=== PATIENT | female | born 1975 | race Caucasian/White ===

== ENCOUNTER 2016-12-12 22:23 | Emergency (ER) | payer MEDICAID ==
[~2016-12-12] VITALS: Ht 167.6 cm; Wt 113.4 kg
[~2016-12-12 22:23] MED LIST: ASPI-605 PO; INSULIN APIDRA; INSULIN REGULAR PUMP; LISI10TA5 PO; NORG1TAB71 PO
[2016-12-12] MEDS ORDERED: HYDROCODONE/APAP 10-325 MG TABLET PO ONE (23:30)
[2016-12-12] MEDS ORDERED: ONDANSETRON ODT 4 MG TAB.RAPDIS SL ONE (23:30)
[2016-12-12] MEDS ORDERED: ONDANSETRON ODT 4 MG TAB.RAPDIS ONE (23:43)
[2016-12-12] MEDS ORDERED: HYDROCODONE/APAP 10-325 MG TABLET ONE (23:44)
--- NOTE | 2016-12-12 23:44 | NUR ---
Patient discharged to home in stable conditon. Written and verbal after care instructions given. Patient verbalizes understanding of instructions.
[2016-12-12 23:45] VITALS: BP 138/80
== END 2016-12-12 23:44 | disposition home or self-care (01) ==
LOC: ER 22:23
DX: B34.9 Viral infection, unspecified (principal); E10.9 Type 1 diabetes mellitus without complications; I10 Essential (primary) hypertension; Z88.2 Allergy status to sulfonamides; H92.03 Otalgia, bilateral; Z88.1 Allergy status to other antibiotic agents; Z79.82 Long term (current) use of aspirin; Z79.4 Long term (current) use of insulin
CPT/HCPCS: A4663; Q0162

== ENCOUNTER 2016-12-14 20:13 | Emergency (ER) | payer MEDICAID ==
[~2016-12-14] VITALS: Ht 167.6 cm; Wt 113.4 kg
--- NOTE | 2016-12-14 21:15 | NUR ---
Patient discharged to home in stable conditon. Written and verbal after care instructions given. Patient verbalizes understanding of instructions. WALKED OUT OF ER WITH STEADY GAIT WITH NO DISTRESS NOTED
== END 2016-12-14 21:16 | disposition home or self-care (01) ==
LOC: ER 20:16
DX: H66.91 Otitis media, unspecified, right ear (principal); E10.9 Type 1 diabetes mellitus without complications; I10 Essential (primary) hypertension; J02.9 Acute pharyngitis, unspecified; R09.81 Nasal congestion; Z79.4 Long term (current) use of insulin; Z79.82 Long term (current) use of aspirin; Z88.2 Allergy status to sulfonamides; Z88.1 Allergy status to other antibiotic agents
CPT/HCPCS: A4663

== ENCOUNTER 2017-05-12 11:17 | Emergency (ER) | payer MEDICAID ==
[~2017-05-12] VITALS: Ht 167.6 cm; Wt 117.9 kg
--- NOTE | 2017-05-12 11:49 | NUR ---
Dr Armenta at the bedside for eval and exam.
--- NOTE | 2017-05-12 11:57 | NUR ---
Patient discharged to home in stable conditon. Written and verbal after care instructions given. Patient verbalizes understanding of instructions.
[2017-05-12 11:58] VITALS: BP 152/103
== END 2017-05-12 11:58 | disposition home or self-care (01) ==
LOC: ER 11:17
DX: L08.89 Other specified local infections of the skin and subcutaneous tissue (principal); E10.9 Type 1 diabetes mellitus without complications; Z79.4 Long term (current) use of insulin; Z88.1 Allergy status to other antibiotic agents; Z88.2 Allergy status to sulfonamides
CPT/HCPCS: 99283; A4663

== ENCOUNTER 2017-06-04 08:30 | Emergency (ER) | payer MEDICAID ==
[~2017-06-04] VITALS: Ht 167.6 cm; Wt 117.9 kg
[~2017-06-04 08:30] MED LIST changes: -NORG1TAB71 PO
--- NOTE | 2017-06-04 08:54 | NUR ---
Pt c/o lower quadrant ABD pain, currently 8-9/10, and dysuria. Pt denies CP, SOB, dizziness, n/v, no other complaints, no distress noted. Urine sample taken to lab.
[2017-06-04 09:13] LABS: *BLOOD, URINE 1+ (NEGATIVE); *KETONES,URINE TRACE (NEGATIVE); *PROTEIN,URINE 2+ (NEGATIVE); LEUKOCYTE ESTERASE ,URINE NEGATIVE (NEGATIVE); NITRITE, URINE POSITIVE (NEGATIVE); UGLUCOSE TRACE (NEGATIVE)
[2017-06-04] MEDS ORDERED: LEVOFLOXACIN 750 MG TABLET PO ONE (09:15)
[2017-06-04 09:18] LABS: *URINE HCG, QUAL NEG (NEGATIVE)
[2017-06-04 09:28] LABS: *BILIRUBIN,URIN 1+ (NEGATIVE)
[2017-06-04 09:29] LABS: *CLARITY,URINE SLIGHTLY CLOUDY (CLEAR)
[2017-06-04 09:30] LABS: *COLOR,URINE DARK ORANGE (YELLOW)
[2017-06-04] MEDS ORDERED: LEVOFLOXACIN 750 MG TABLET ONE (09:30)
[2017-06-04 09:34] LABS: BACTERIA,URINE MODERATE /HPF (NONE SEEN); SQUAMOUS EPITHELIAL CELL,UR FEW /HPF (NONE SEEN)
[2017-06-04 09:35] LABS: MUCUS,URINE FEW /LPF (0-FEW)
--- NOTE | 2017-06-04 09:40 | NUR ---
Gave pt RX and d/c instructions, verbalized understanding.
== END 2017-06-04 09:42 | disposition home or self-care (01) ==
LOC: ER 08:30
DX: N39.0 Urinary tract infection, site not specified (principal); E11.9 Type 2 diabetes mellitus without complications; Z79.4 Long term (current) use of insulin; Z88.1 Allergy status to other antibiotic agents; Z88.2 Allergy status to sulfonamides
CPT/HCPCS: 84703; 87077; 87086; A4663

== ENCOUNTER 2017-10-08 11:01 | Emergency (ER) | payer MEDICAID ==
[~2017-10-08] VITALS: Ht 167.6 cm; Wt 117.9 kg
--- NOTE | 2017-10-08 12:09 | NUR ---
PATIENT WAS SEEN BY MD FOR CHEST/SHOULDER DISCOMFORT. 12 LEAD EKG WA DONE GABRIELLE. TROPONIN WAS WNL. PATIENT TO F/U WITH HER DOCTOR. DC AND FOLLW UP INSTRUCTIONS GIVEN AND EXPLAINED TO PATIENT WHO STATES SHE UNDERSTANDS ALL ISNRTUCITONS
== END 2017-10-08 12:14 | disposition home or self-care (01) ==
LOC: ER 11:01
DX: R07.89 Other chest pain (principal); E10.9 Type 1 diabetes mellitus without complications; Z79.4 Long term (current) use of insulin; Z79.82 Long term (current) use of aspirin; Z88.2 Allergy status to sulfonamides
CPT/HCPCS: 36415; 70030-TC; 93005; A4663

== ENCOUNTER 2018-04-26 08:08 | Emergency (ER) | payer MEDICAID ==
[~2018-04-26] VITALS: Ht 167.6 cm; Wt 117.9 kg
--- NOTE | 2018-04-26 08:30 | NUR ---
mse completed, pt d/c'd home, aci/rx x1 given
[2018-04-26 08:44] VITALS: BP 133/78
== END 2018-04-26 08:30 | disposition home or self-care (01) ==
LOC: ER 08:08
DX: J20.9 Acute bronchitis, unspecified (principal); E10.8 Type 1 diabetes mellitus with unspecified complications; Z88.2 Allergy status to sulfonamides; Z88.8 Allergy status to other drugs, medicaments and biological substances; Z79.4 Long term (current) use of insulin; Z79.82 Long term (current) use of aspirin
CPT/HCPCS: 99281; A4663

== ENCOUNTER 2019-01-07 14:35 | Emergency (ER) | payer MEDICAID ==
[~2019-01-07] VITALS: Ht 167.6 cm; Wt 117.9 kg
[2019-01-07 15:05] LABS: *URINE HCG, QUAL NEGATIVE (NEGATIVE)
[2019-01-07 15:08] LABS: *CLARITY,URINE CLOUDY (CLEAR); *COLOR,URINE ORANGE (YELLOW)
[2019-01-07 15:09] LABS: *BLOOD, URINE 3+ (NEGATIVE); UGLUCOSE NEGATIVE (NEGATIVE)
[2019-01-07 15:10] LABS: *BILIRUBIN,URIN NEGATIVE (NEGATIVE); *KETONES,URINE TRACE (NEGATIVE); LEUKOCYTE ESTERASE ,URINE 1+ (NEGATIVE); NITRITE, URINE NEGATIVE (NEGATIVE)
[2019-01-07 15:12] LABS: BACTERIA,URINE MODERATE /HPF (NONE SEEN); MUCUS,URINE MODERATE /LPF (0-FEW); RBC,URINE 80-100 /HPF (0-3); SQUAMOUS EPITHELIAL CELL,UR MODERATE /HPF (NONE SEEN); WBC,URINE 50-80 /HPF (0-3)
[2019-01-07] MEDS ORDERED: PHENAZOPYRIDINE HCL 100 MG TABLET PO ONE (15:30)
[2019-01-07] MEDS ORDERED: CEphaleXIN 500 MG CAPSULE PO ONE (15:30)
[2019-01-07] MEDS ORDERED: PHENAZOPYRIDINE HCL 100 MG TABLET ONE (15:34)
[2019-01-07] MEDS ORDERED: CEphaleXIN 500 MG CAPSULE ONE (15:34)
== END 2019-01-07 15:40 | disposition home or self-care (01) ==
LOC: ER 14:35
DX: N39.0 Urinary tract infection, site not specified (principal); E11.9 Type 2 diabetes mellitus without complications; Z88.2 Allergy status to sulfonamides; Z88.8 Allergy status to other drugs, medicaments and biological substances; Z79.82 Long term (current) use of aspirin; Z79.4 Long term (current) use of insulin; Z79.899 Other long term (current) drug therapy
CPT/HCPCS: 84703; A4663

== ENCOUNTER 2020-06-03 13:04 | Emergency (ER) | payer MEDICAID ==
[~2020-06-03] VITALS: Ht 167.6 cm; Wt 117.9 kg
[2020-06-03 13:47] LABS: *BILIRUBIN,URIN NEGATIVE (NEGATIVE); *BLOOD, URINE NEGATIVE (NEGATIVE); *CLARITY,URINE CLEAR (CLEAR); *COLOR,URINE YELLOW (YELLOW); *KETONES,URINE NEGATIVE (NEGATIVE); *UROBILINOGEN,URINE 0.2 E.U./dl (NORMAL); LEUKOCYTE ESTERASE ,URINE NEGATIVE (NEGATIVE); NITRITE, URINE NEGATIVE (NEGATIVE); PH,URINE 5.5 (5.0-8.0); UGLUCOSE NEGATIVE (NEGATIVE)
[2020-06-03 13:56] LABS: *URINE HCG, QUAL NEG (NEGATIVE)
[2020-06-03] MEDS ORDERED: CEFTRIAXONE 2 G in IV DEXTROSE 5% 100 ML IV ONE (14:00)
[2020-06-03] MEDS ORDERED: CEFTRIAXONE 1 G VIAL ONE (14:03)
--- NOTE | 2020-06-03 14:18 | NUR ---
Patient is resting comfortably on gurney while using her personal electronic device. PATIENT IS PAIN FREE AT THIS TIME.
--- NOTE | 2020-06-03 15:00 | NUR ---
IV removed. Catheter intact and site benign. Pressure and 4x4 gauze applied to site. No bleeding noted. Patient discharged to home in stable condition with brisk steady gait. Written and verbal after care instructions was given to patient. Patient verbalized understanding and compliance of instructions. Stressed follow up with primary doctor was reiterated to patient. Patient was also told to return to ER for worsening of signs and symptoms.
== END 2020-06-03 15:04 | disposition home or self-care (01) ==
LOC: ER 13:04
DX: N10 Acute pyelonephritis (principal); E11.9 Type 2 diabetes mellitus without complications; Z96.41 Presence of insulin pump (external) (internal); Z88.2 Allergy status to sulfonamides; E78.5 Hyperlipidemia, unspecified; Z87.440 Personal history of urinary (tract) infections; I10 Essential (primary) hypertension; Z88.8 Allergy status to other drugs, medicaments and biological substances
CPT/HCPCS: 81001; 82962; 84703; 87086; 96365; 99284; J0696; A4663; J3490

== ENCOUNTER 2021-01-07 20:48 | Emergency (ER) | payer MEDICAID ==
[~2021-01-07] VITALS: Ht 167.6 cm; Wt 117.9 kg
[~2021-01-07 20:48] MED LIST changes: +LISI10TA29 PO; -LISI10TA5 PO
--- NOTE | 2021-01-07 20:55 | NUR ---
Natividad perez in [facility] - 01/07/21 at 2104 by MATTHIAS Patient provided urine sample, sent to lab.
--- NOTE | 2021-01-07 21:01 | NUR ---
Dr. Blanco at bedside for MSE.
[2021-01-07 21:32] LABS: BASOPHILS # (AUTO) 0.1 K/uL (0.0-8.0); BASOPHILS % (AUTO) 0.6 % (0.0-2.0); EOSINOPHILS # (AUTO) 0.2 K/uL (0.0-0.7); HEMATOCRIT 37.7 % (31.2-41.9); HEMOGLOBIN 12.5 g/dL (10.9-14.3); LYMPHOCYTES # (AUTO) 2.7 K/uL (20.0-40.0); LYMPHOCYTES % (AUTO) 21.9 % (20.5-51.5); MEAN CORPUSCULAR HEMOGLOBIN 27.8 uug (24.7-32.8); MEAN CORPUSCULAR HGB CONC 33 g/dL (32.3-35.6); MEAN CORPUSCULAR VOLUME 83.8 fL (75.5-95.3); MONOCYTES # (AUTO) 0.6 K/uL (2.0-10.0); MONOCYTES % (AUTO) 4.6 % (0.0-11.0); NEUTROPHILS # (AUTO) 8.9 K/uL (1.8-8.9); NEUTROPHILS % (AUTO) 70.9 % (38.5-71.5); PLATELET COUNT (AUTO) 445 K/uL (179-408); WHITE BLOOD COUNT (AUTO) 12.5 K/uL (3.8-11.8)
[2021-01-07 21:33] LABS: CARBON DIOXIDE 27 mmol/L (21-32); CHLORIDE 103 mmol/L (98-107); GLUCOSE 187 mg/dL (74-106); POTASSIUM 3.7 mmol/L (3.5-5.1); UREA NITROGEN, BLOOD 14 mg/dL (7-18)
[2021-01-07 21:39] LABS: ALANINE AMINOTRANSFERASE 19 U/L (14-59); ALKALINE PHOSPHATASE < 10 U/L (50-136); ASPARTATE AMINOTRANSFERASE 12 U/L (15-37); BILIRUBIN,DIRECT 0.1 mg/dL (0.0-0.2); BILIRUBIN,TOTAL 0.3 mg/dL (0.2-1.0); LIPASE 49 U/L (73-393)
[2021-01-07] MEDS ORDERED: IV NORMAL SALINE 250 ML IV ONE (21:53)
[2021-01-07] MEDS ORDERED: SWABABLE VALVE TRANSFER SET EA MC ONE (21:53)
[2021-01-07] MEDS ORDERED: IOHEXOL 300MG/ML 100 ML INFUS..BTL ONE (21:53)
--- NOTE | 2021-01-07 22:02 | NUR ---
Pt out of ER for CT.
--- NOTE | 2021-01-07 22:20 | NUR ---
Pt back to ER from CT.
--- NOTE | 2021-01-07 22:25 | NUR ---
Ultrasound at bedside.
[2021-01-07] MEDS ORDERED: HYDR-4209 PO (23:05)
[2021-01-07] MEDS ORDERED: ONDA4TAB5 PO (23:05)
[2021-01-07] MEDS ORDERED: KETOROLAC TROMETHAMINE 30 MG INJ ONE (23:27)
--- NOTE | 2021-01-07 23:27 | NUR ---
Patient discharged to home in stable condition. Written and verbal after care instructions given. Patient verbalizes understanding of instructions. Stressed follow up or return to ER for worsening s/s. Patient out of ER with steady gait, VSS, no acute signs of distress, all belongings taken, IV site discontinued, provided with a copy of lab and results of CT and ultrasound and CD.
[2021-01-07 23:29] VITALS: BP 141/73
[2021-01-07] MEDS ORDERED: KETOROLAC TROMETHAMINE 30 MG INJ IVP ONE (23:30)
[2021-01-08] MEDS ORDERED: NITR100C11 PO (19:30)
[2021-01-08] MEDS ORDERED: NAPR-1164 PO (19:31)
[2021-01-08] MEDS ORDERED: PHEN-704 PO (19:31)
[2021-01-08] MEDS ORDERED: CEPH500C2 PO (19:36)
== END 2021-01-07 23:30 | disposition home or self-care (01) ==
LOC: ER 20:48
DX: K80.20 Calculus of gallbladder without cholecystitis without obstruction (principal); Z88.2 Allergy status to sulfonamides; E10.9 Type 1 diabetes mellitus without complications; E66.9 Obesity, unspecified; Z68.41 Body mass index [BMI] 40.0-44.9, adult; R10.33 Periumbilical pain
CPT/HCPCS: 36415; 74177; 76705; 80048; 80076; 83690; 85025; 85730; 96374; 99285; J1885; Q9967; A4663; J7050

== ENCOUNTER 2021-01-08 19:02 | Emergency (ER) | payer MEDICAID ==
[~2021-01-08] VITALS: Ht 167.6 cm; Wt 117.9 kg
[~2021-01-08 19:02] MED LIST changes: +HYDR-4209 PO; +ONDA4TAB5 PO
--- NOTE | 2021-01-08 19:10 | NUR ---
Provided urine cup to patient to collect patient. Patient A/Ox4, patient came for c/o pain when voiding. Patient describes feeling pressure, and urge incontinence not being able to urinate. Denies any flank pain, no nausea or vomiting. Awaiting physician evaluation.
[2021-01-08 19:18] LABS: *BILIRUBIN,URIN NEGATIVE (NEGATIVE); *BLOOD, URINE NEGATIVE (NEGATIVE); *CLARITY,URINE SLIGHTLY CLOUDY (CLEAR); *COLOR,URINE YELLOW (YELLOW); *KETONES,URINE NEGATIVE (NEGATIVE); *UROBILINOGEN,URINE 0.2 E.U./dl (NORMAL); LEUKOCYTE ESTERASE ,URINE NEGATIVE (NEGATIVE); NITRITE, URINE NEGATIVE (NEGATIVE); PH,URINE 5.5 (5.0-8.0); UGLUCOSE 1+ (NEGATIVE)
--- NOTE | 2021-01-08 19:18 | NUR ---
Urine specimen dropped off at lab for processing.
[2021-01-08 19:20] LABS: *URINE HCG, QUAL NEGATIVE (NEGATIVE)
--- NOTE | 2021-01-08 19:22 | NUR ---
ER physician at bedside for MSE.
[2021-01-08 19:25] LABS: BACTERIA,URINE MODERATE /HPF (NONE SEEN); RBC,URINE 0-3 /HPF (0-3); SQUAMOUS EPITHELIAL CELL,UR FEW /HPF (NONE SEEN); WBC,URINE 0-3 /HPF (0-3)
[2021-01-08] MEDS ORDERED: NITR100C11 PO (19:30)
[2021-01-08] MEDS ORDERED: NAPR-1164 PO (19:31)
[2021-01-08] MEDS ORDERED: PHEN-704 PO (19:31)
[2021-01-08 19:33] VITALS: BP 140/90
--- NOTE | 2021-01-08 19:33 | NUR ---
Patient discharged to home in stable condition. Written and verbal after care instructions given. Patient verbalizes understanding of instructions. Stressed follow up or return to ER for worsening s/s. Patient ambulated with steady gait. A/Ox4. All belongings returned to patient prior to departure.
[2021-01-08] MEDS ORDERED: CEPH500C2 PO (19:36)
== END 2021-01-08 19:37 | disposition home or self-care (01) ==
LOC: ER 19:02
DX: R30.0 Dysuria (principal); R10.9 Unspecified abdominal pain; K76.0 Fatty (change of) liver, not elsewhere classified; K80.20 Calculus of gallbladder without cholecystitis without obstruction; E11.9 Type 2 diabetes mellitus without complications; Z79.4 Long term (current) use of insulin; Z87.440 Personal history of urinary (tract) infections
CPT/HCPCS: 84703; 87086; A4663

== ENCOUNTER 2021-04-28 02:17 | Emergency (ER) | payer MEDICAID ==
[~2021-04-28] VITALS: Ht 167.6 cm; Wt 113.4 kg
[~2021-04-28 02:17] MED LIST changes: +CEPH500C2 PO; +NAPR-1164 PO; +PHEN-704 PO
--- NOTE | 2021-04-28 02:26 | NUR ---
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 A/O X4, NO SOB OR LABORED BREATHING. DENIES CP/PRESSURE. DR. ALLRED AT BEDSIDE MSE IN PROGRESS.
[2021-04-28] MEDS ORDERED: KETOROLAC TROMETHAMINE 15 MG INJ IVP ONE (02:30)
[2021-04-28] MEDS ORDERED: HYDROMORPHONE 1 MG/1 ML DISP.SYRIN IV ONE (02:30)
[2021-04-28] MEDS ORDERED: ONDANSETRON 4 MG/2 ML VIAL IV ONE (02:30)
--- NOTE | 2021-04-28 02:49 | NUR ---
LAB AT BEDSIDE.
[2021-04-28 03:11] LABS: CREATININE 0.9 mg/dL (0.6-1.3); POTASSIUM 3.7 mmol/L (3.5-5.1)
--- NOTE | 2021-04-28 03:12 | NUR ---
ULTRASOUND ([facility]) AT BEDSIDE.
[2021-04-28 03:13] LABS: HEMATOCRIT 37.5 % (31.2-41.9); MEAN CORPUSCULAR VOLUME 83.2 fL (75.5-95.3); PLATELET COUNT (AUTO) 306 K/uL (179-408)
[2021-04-28] MEDS ORDERED: HYDROCODONE/APAP 5-325MG TABLET PO ONE (03:15)
[2021-04-28] MEDS ORDERED: ONDANSETRON ODT 4 MG TAB.RAPDIS SL ONE (03:15)
[2021-04-28] MEDS ORDERED: IBUPROFEN 400 MG TABLET PO ONE (03:15)
[2021-04-28 03:16] LABS: BILIRUBIN,DIRECT 0.1 mg/dL (0.0-0.2); BILIRUBIN,TOTAL 0.3 mg/dL (0.2-1.0); TOTAL PROTEIN, SERUM 7.4 g/dL (6.4-8.2)
[2021-04-28] MEDS ORDERED: ONDANSETRON ODT 4 MG TAB.RAPDIS ONE (03:19)
[2021-04-28] MEDS ORDERED: IBUPROFEN 400 MG TABLET ONE (03:19)
[2021-04-28] MEDS ORDERED: HYDROCODONE/APAP 5-325MG TABLET ONE (03:19)
[2021-04-28] MEDS ORDERED: HYDR-4209 PO (03:21)
[2021-04-28] MEDS ORDERED: IBUP-1490 PO (03:21)
[2021-04-28] MEDS ORDERED: ONDA4TAB5 PO (03:21)
--- NOTE | 2021-04-28 03:49 | NUR ---
Patient discharged to home in stable condition. A/O x4, no SOB or labored breathing, afebrile. Denies any pain/discomfort upon discharge. Written and verbal after care instructions given. Patient verbalizes understanding of instructions. Stressed follow up or return to ER for worsening s/s. Steady gait.
[2021-04-28 03:50] VITALS: BP 154/88
== END 2021-04-28 03:52 | disposition home or self-care (01) ==
LOC: ER 02:20
DX: K80.20 Calculus of gallbladder without cholecystitis without obstruction (principal); E10.9 Type 1 diabetes mellitus without complications; Z79.4 Long term (current) use of insulin; Z88.2 Allergy status to sulfonamides
CPT/HCPCS: 36415; 83690; 85025; A4663; Q0162

== ENCOUNTER 2022-09-28 17:40 | Emergency (ER) | payer MEDICAID ==
[~2022-09-28] VITALS: Ht 167.6 cm; Wt 117.9 kg
[~2022-09-28 17:40] MED LIST changes: +IBUP-1490 PO
[2022-09-28 18:43] LABS: HEMATOCRIT 39.9 % (31.2-41.9); MEAN CORPUSCULAR HEMOGLOBIN 27.2 uug (24.7-32.8); MEAN CORPUSCULAR VOLUME 82.8 fL (75.5-95.3); PLATELET COUNT (AUTO) 414 K/uL (179-408)
[2022-09-28] MEDS ORDERED: ALBUTEROL SULFATE 2.5 MG/ 0.5 ML NEBU NEB ONE (18:45)
[2022-09-28] MEDS ORDERED: IPRATROPIUM BROMIDE 0.5 MG/2.5 ML NEBU NEB ONE (18:45)
--- NOTE | 2022-09-28 18:50 | NUR ---
pt states she just tested covid negative at urgent care [employer] here.
[2022-09-28] MEDS ORDERED: ALBUTEROL SULFATE 2.5 MG/3 ML NEBU ONE ×2 (18:53→21:20)
[2022-09-28] MEDS ORDERED: IPRATROPIUM BROMIDE 0.5 MG/2.5 ML NEBU ONE (18:53)
[2022-09-28 19:06] LABS: ALANINE AMINOTRANSFERASE 16 U/L (14-59); ALKALINE PHOSPHATASE 62 U/L (50-136); ASPARTATE AMINOTRANSFERASE 11 U/L (15-37); BILIRUBIN,DIRECT 0.1 mg/dL (0.0-0.2); BILIRUBIN,TOTAL 0.3 mg/dL (0.2-1.0); CARBON DIOXIDE 23 mmol/L (21-32); CHLORIDE 106 mmol/L (98-107); CREATININE 0.9 mg/dL (0.6-1.3); GLUCOSE 248 mg/dL (74-106); POTASSIUM 4.1 mmol/L (3.5-5.1); TOTAL PROTEIN, SERUM 7.7 g/dL (6.4-8.2); UREA NITROGEN, BLOOD 15 mg/dL (7-18)
[2022-09-28] MEDS ORDERED: MAGNESIUM SULFATE/D5W 200 ML ONE (20:34)
[2022-09-28] MEDS: MAGNESIUM SULFATE/D5W 100 ML IV SCH ×2 (20:42→21:08)
[2022-09-28] MEDS ORDERED: ALBUTEROL SULFATE 2.5 MG/3 ML NEBU NEB ONE (21:15)
[2022-09-28] MEDS ORDERED: FLUT12AE5 INH (22:36)
[2022-09-28] MEDS ORDERED: CEFU500T66 PO (22:36)
[2022-09-28] MEDS ORDERED: ALBU6.7H9 INH (22:36)
[2022-09-28] MEDS ORDERED: PRED50TA PO (22:37)
--- NOTE | 2022-09-28 22:45 | NUR ---
Patient discharged to home in stable condition. A/O x 4. NAD noted. Ambulatory with a steady gait. All belongings with pt. Written and verbal after care instructions given. Patient verbalizes understanding of instructions. Stressed follow up or return to ER for worsening s/s.
[2022-09-28 23:05] VITALS: BP 142/78
== END 2022-09-28 23:00 | disposition home or self-care (01) ==
LOC: ER 17:40
DX: J20.9 Acute bronchitis, unspecified (principal); J96.01 Acute respiratory failure with hypoxia; E83.42 Hypomagnesemia; E66.9 Obesity, unspecified; E10.9 Type 1 diabetes mellitus without complications; Z96.41 Presence of insulin pump (external) (internal); Z68.41 Body mass index [BMI] 40.0-44.9, adult; Z88.2 Allergy status to sulfonamides; Z79.4 Long term (current) use of insulin
CPT/HCPCS: 99291; 96365; 87426; 80076; 80048; 83880; 83735; 85025; 84484; 36415; 93005; 71045; 94644; 94645; J3475; A4663; J3590

== ENCOUNTER 2023-09-26 10:40 | Emergency (ER) | payer MEDICAID ==
[~2023-09-26] VITALS: Ht 167.6 cm; Wt 127.0 kg
[~2023-09-26 10:40] MED LIST changes: +ALBU6.7H9 INH; +CEFU500T66 PO; +FLUT12AE5 INH; +PRED50TA PO
[2023-09-26 11:45] VITALS: BP 151/80; O2SAT 98
== END 2023-09-26 11:46 | disposition home or self-care (01) ==
LOC: ER 10:40
DX: S90.851A Superficial foreign body, right foot, initial encounter (principal); E10.9 Type 1 diabetes mellitus without complications; R03.0 Elevated blood-pressure reading, without diagnosis of hypertension; Z79.82 Long term (current) use of aspirin; Z98.890 Other specified postprocedural states; Z79.899 Other long term (current) drug therapy; Z88.2 Allergy status to sulfonamides; Z88.1 Allergy status to other antibiotic agents; W26.8XXA Contact with other sharp object(s), not elsewhere classified, initial encounter; Y93.89 Activity, other specified; Y92.89 Other specified places as the place of occurrence of the external cause; Y99.8 Other external cause status
CPT/HCPCS: A4606; A4663

== ENCOUNTER 2024-07-11 15:32 | Emergency (ER) | payer MEDICAID ==
[~2024-07-11] VITALS: Ht 167.6 cm; Wt 127.0 kg
[2024-07-11 15:36] VITALS: O2SAT 97
[2024-07-11 15:54] LABS: *BILIRUBIN,URIN NEGATIVE (NEGATIVE); *BLOOD, URINE 3+ (NEGATIVE); *CLARITY,URINE CLEAR (CLEAR); *COLOR,URINE Orange (YELLOW); *KETONES,URINE NEGATIVE (NEGATIVE); *PROTEIN,URINE 1+ (NEGATIVE); LEUKOCYTE ESTERASE ,URINE TRACE (NEGATIVE); NITRITE, URINE POSITIVE (NEGATIVE); UGLUCOSE TRACE (NEGATIVE)
[2024-07-11 15:58] LABS: *URINE HCG, QUAL NEGATIVE (NEGATIVE)
[2024-07-11 16:15] LABS: BACTERIA,URINE MODERATE /HPF (NONE SEEN); SQUAMOUS EPITHELIAL CELL,UR MODERATE /HPF (NONE SEEN)
[2024-07-11] MEDS ORDERED: IBUP-1953 PO (16:27)
[2024-07-11] MEDS ORDERED: CIPR-262 PO (16:27)
[2024-07-11] MEDS ORDERED: PHEN-705 PO (16:27)
[2024-07-11] MEDS ORDERED: IBUPROFEN 400 MG TABLET ONE (16:33)
[2024-07-11] MEDS ORDERED: PHENAZOPYRIDINE HCL 100 MG TABLET ONE (16:33)
[2024-07-11] MEDS ORDERED: CIPROFLOXACIN HCL 250 MG TABLET ONE (16:34)
[2024-07-11] MEDS: CIPROFLOXACIN HCL 250 MG TABLET PO ONE (16:39)
[2024-07-11] MEDS: PHENAZOPYRIDINE HCL 100 MG TABLET PO ONE (16:39)
[2024-07-11] MEDS: IBUPROFEN 400 MG TABLET PO ONE (16:48)
== END 2024-07-11 16:50 | disposition home or self-care (01) ==
LOC: ER 15:32
DX: N39.0 Urinary tract infection, site not specified (principal); E11.9 Type 2 diabetes mellitus without complications; Z79.4 Long term (current) use of insulin; Z79.51 Long term (current) use of inhaled steroids; Z79.52 Long term (current) use of systemic steroids; Z79.82 Long term (current) use of aspirin; Z79.899 Other long term (current) drug therapy; Z88.1 Allergy status to other antibiotic agents; Z88.2 Allergy status to sulfonamides; Z88.7 Allergy status to serum and vaccine; Z87.19 Personal history of other diseases of the digestive system; Z87.42 Personal history of other diseases of the female genital tract; Z87.448 Personal history of other diseases of urinary system
CPT/HCPCS: 84703; A4606; A4663

== ENCOUNTER 2024-10-26 00:45 | Emergency (ER) | payer MEDICAID ==
[~2024-10-26] VITALS: Ht 167.6 cm; Wt 122.5 kg
[~2024-10-26 00:45] MED LIST changes: +CIPR-262 PO; +IBUP-1953 PO; +PHEN-705 PO
[2024-10-26] MEDS ORDERED: HYDROMORPHONE 1 MG/1 ML DISP.SYRIN ONE (01:28)
[2024-10-26] MEDS ORDERED: ONDANSETRON 4 MG/2 ML VIAL ONE (01:28)
[2024-10-26] MEDS: HYDROMORPHONE 1 MG/1 ML DISP.SYRIN IV ONE (01:29)
[2024-10-26] MEDS: ONDANSETRON 4 MG/2 ML VIAL IV ONE (01:30)
[2024-10-26] MEDS ORDERED: KETOROLAC TROMETHAMINE 15 MG INJ ONE ×2 (01:36→05:51)
[2024-10-26 01:39] LABS: BASOPHILS # (AUTO) 0.1 K/UL (0.0-0.2); BASOPHILS % (AUTO) 0.5 % (0.0-2.0); DIFFERENTIAL COMMENT 1; EOSINOPHILS # (AUTO) 0.2 K/uL (0.0-0.7); EOSINOPHILS % (AUTO) 1.8 % (0.0-7.0); HEMATOCRIT 38.4 % (31.2-41.9); HEMOGLOBIN 12.6 g/dL (10.9-14.3); LYMPHOCYTES # (AUTO) 3.2 K/uL (0.8-4.8); LYMPHOCYTES % (AUTO) 26.6 % (20.5-51.5); MEAN CORPUSCULAR HEMOGLOBIN 26.9 uug (24.7-32.8); MEAN CORPUSCULAR HGB CONC 33 g/dL (32.3-35.6); MEAN CORPUSCULAR VOLUME 81.7 fL (75.5-95.3); MONOCYTES # (AUTO) 0.5 K/uL (0.1-1.30); MONOCYTES % (AUTO) 4.5 % (0.0-11.0); NEUTROPHILS % (AUTO) 66.6 % (38.5-71.5); PLATELET COUNT (AUTO) 406 K/uL (179-408); RED CELL DISTRIBUTION WIDTH 14.8 % (12.3-17.7); WHITE BLOOD COUNT (AUTO) 12.1 K/uL (3.8-11.8)
[2024-10-26] MEDS: KETOROLAC TROMETHAMINE 15 MG INJ IVP ONE ×2 (01:39→05:56)
[2024-10-26 01:41] LABS: CALCIUM 8.9 mg/dL (8.5-10.1); CARBON DIOXIDE 29 mmol/L (21-32); CHLORIDE 102 mmol/L (98-107); CREATININE 0.8 mg/dL (0.6-1.3); GLUCOSE 178 mg/dL (74-106); POTASSIUM 3.9 mmol/L (3.5-5.1); SODIUM SERUM 138 mmol/L (136-145); UREA NITROGEN, BLOOD 25 mg/dL (7-18)
[2024-10-26 01:49] LABS: *BILIRUBIN,URIN NEGATIVE (NEGATIVE); *CLARITY,URINE CLEAR (CLEAR); *COLOR,URINE YELLOW (YELLOW); *KETONES,URINE NEGATIVE (NEGATIVE); *PROTEIN,URINE NEGATIVE (NEGATIVE); *UROBILINOGEN,URINE 0.2 E.U./dl (NORMAL); LEUKOCYTE ESTERASE ,URINE NEGATIVE (NEGATIVE); NITRITE, URINE NEGATIVE (NEGATIVE); PH,URINE 5.5 (5.0-8.0); UGLUCOSE NEGATIVE (NEGATIVE)
[2024-10-26 01:50] LABS: ALANINE AMINOTRANSFERASE 19 U/L (14-59); ALBUMIN 3.3 g/dL (3.4-5.0); ALKALINE PHOSPHATASE 62 U/L (50-136); ASPARTATE AMINOTRANSFERASE 11 U/L (15-37); BILIRUBIN,DIRECT < 0.1 mg/dL (0.0-0.2); BILIRUBIN,TOTAL < 0.1 mg/dL (0.2-1.0); TOTAL PROTEIN, SERUM 7.6 g/dL (6.4-8.2)
[2024-10-26 02:00] LABS: *BLOOD, URINE TRACE (NEGATIVE); *URINE HCG, QUAL NEGATIVE (NEGATIVE)
[2024-10-26 02:04] LABS: RBC,URINE 0-3 /HPF (0-3)
[2024-10-26 02:05] LABS: BACTERIA,URINE NONE SEEN /HPF (NONE SEEN); SQUAMOUS EPITHELIAL CELL,UR NONE SEEN /HPF (NONE SEEN); WBC,URINE NONE SEEN /HPF (0-3)
[2024-10-26] MEDS ORDERED: PIPERACILLIN/TAZOBACTAM/D5W 50 ML IV ONE (03:56)
[2024-10-26] MEDS ORDERED: MORPHINE SULFATE 4 MG/1 ML DISP.SYRIN ONE ×2 (03:56→13:15)
[2024-10-26] MEDS: MORPHINE SULFATE 4 MG/1 ML DISP.SYRIN IV ONE ×2 (03:57→13:22)
[2024-10-26] MEDS: PIPERACILLIN SODIUM/TAZOBACTAM 3.375 G in IV DEXTROSE 5% 50 ML IV ONE (04:00)
[2024-10-26 11:36] LABS: LIPASE 28 U/L (16-77)
[2024-10-26] MEDS ORDERED: AMOX-430 PO (14:22)
[2024-10-26] MEDS ORDERED: OXYC-128 PO (14:22)
[2024-10-26 14:50] VITALS: BP 132/74; TEMP 98; O2SAT 100
[2024-10-28] MEDS ORDERED: OXYC-128 PO (08:37)
== END 2024-10-26 14:53 | disposition home or self-care (01) ==
LOC: ER 00:51
DX: K80.20 Calculus of gallbladder without cholecystitis without obstruction (principal); E10.9 Type 1 diabetes mellitus without complications; Z79.4 Long term (current) use of insulin; Z79.51 Long term (current) use of inhaled steroids; Z79.52 Long term (current) use of systemic steroids; Z79.82 Long term (current) use of aspirin; Z79.899 Other long term (current) drug therapy; Z88.1 Allergy status to other antibiotic agents; Z88.2 Allergy status to sulfonamides; Z88.7 Allergy status to serum and vaccine
CPT/HCPCS: 99285; 78445; 74176; 96365; 96375; 76705; 71045; 80076; 80048; 81001; 84703; 83690; 85025; 85730; 84484 ×2; 36415; 93005; 96376; J1885 ×2; J1171; J2405; J2543; J2270 ×2; A9537; A4606; A4663